=== PATIENT | female | born 1960 | race Caucasian/White ===

== ENCOUNTER 2021-11-19 18:17 | Emergency (ER) | payer SELFPAY ==
[2021-11-19 18:40] LABS: BASO # 0.04 K/mm3 (0.02-0.10); EOS # 0.14 K/mm3 (0.04-0.40); HEMATOCRIT 40.1 % (37.0-47.0); HEMOGLOBIN 12.9 g/dL (12.5-16.0); LYMPH# 3.34 K/mm3 (1.50-4.00); MEAN CELL VOLUME 98 fl (78-100); MEAN CORPUSCULAR HEMOGLOBIN 31 pg (27-31); MEAN CORPUSCULAR HGB CONC 32 g/dL (33-37); MONO # 0.29 K/mm3 (0.20-0.80); NEU # 3.28 K/mm3 (1.40-6.50); PLATELET COUNT 369 K/mm3 (130-400); RED BLOOD COUNT 4.11 M/mm3 (4.10-5.30); WHITE BLOOD COUNT 7.1 K/mm3 (4.8-10.8)
[2021-11-19 18:56] LABS: ALBUMIN 4.5 g/dL (3.5-5.0); POTASSIUM 3.5 mmol/L (3.5-5.1)
[2021-11-19 18:57] LABS: CALCIUM 9.5 mg/dL (8.3-10.5)
[2021-11-19 18:58] LABS: TOTAL PROTEIN 7.8 g/dL (6.4-8.3)
[2021-11-19 19:00] LABS: TOTAL BILIRUBIN 0.7 mg/dL (0.2-1.2)
[2021-11-19 19:14] LABS: D-DIMER 0.3 mg/L FEU (0.15-0.50)
[2021-11-19 20:40] VITALS: BP 148/79
== END 2021-11-19 20:42 | disposition home or self-care (01) ==
LOC: ED 18:17
PROVIDERS: Family Medicine
DX: M25.562 Pain in left knee (principal); I10 Essential (primary) hypertension; R29.6 Repeated falls; F17.200 Nicotine dependence, unspecified, uncomplicated; Z91.14 Patient's other noncompliance with medication regimen